=== PATIENT | female | born 1930 | race Caucasian/White ===

== ENCOUNTER 2017-03-02 12:29 | Outpatient (CLI) | payer MEDICARE ==
--- NOTE | 2017-03-02 14:37 | Diagnostic Imaging Report ---
Indication: Dyspnea Comparison: None 2 views of the chest obtained. There is a mild scoliosis of the thoracic spine convex to the left. Heart size is normal. Lungs are clear. Impression: Mild scoliosis. No acute findings
== END 2017-03-02 14:29 | disposition home or self-care (01) ==
LOC: RAD 12:29
DX: R05 Cough (principal); M41.9 Scoliosis, unspecified
CPT/HCPCS: 71020